=== PATIENT | male | born 1980 | race Two or more races ===

== ENCOUNTER 2024-02-27 15:53 | Inpatient (IN) | payer MEDICAID, OTHER ==
[~2024-02-27] VITALS: Ht 188 cm; Wt 100.0 kg
--- NOTE | 2024-02-27 16:01 | ED.PDOC ---
HPI Comments HPI: Poor Historian. 45 y.o male presents to the ED via EMS for a chief complaint of chest wall pain that started 4 days ago. Patient reports 10/10 constant chest pain that is non radiating and has no associating symptoms. Patient admits to heavy ETOH use, has been drinking hard Vodka and other sort of liquor for one month straight and states he wants help. Patient denies any SI, HI, auditory or visual hallucinations. Patient denies any substance or tobacco use. Vital signs: BP: 164/114 HR: 130 Temp: 98.3 F SPO2: 98% RA RR: 16 Patient denies any allergies Past medical history: HTN- medication non compliant x 6 months, PTSD, ETOH abuse , bipolar Past surgical history: Denies REVIEW OF SYSTEMS: CONSTITUTIONAL: Denies acute: fever, diaphoresis, chills, HEAD: Denies acute: headache, photophobia Eyes: Denies acute: Double vision, vision loss, eye pain, eye discharge. EARS: Denies acute: tinnitus, hearing loss, ear discharge, ear pain, THROAT: Denies acute: sore throat, swelling, difficulty swallowing , pain with swallowing, change in voice. NECK: Denies acute: neck pain, neck swelling, stiff neck. HEART: Denies acute : palpitations, LUNGS: Denies acute: SOB, wheezing, cough, hemoptysis ABDOMEN: Denies acute: abdominal pain, Nausea, Vomiting, diarrhea, melena , hematemesis, hematochezia SKIN: Denies acute: rash, redness, lesions, itchiness. EXTREMITIES: Denies acute: calf pain, numbness, tingling, weakness, denies pain in extremity. Denies acute: Low back pain. Neuro: Denies acute: focal neurological deficit, motor or sensory focal neurological deficit, tremors, seizure like activity, confusion, dizziness, change in mental status, loss of bowel or bladder function, cauda equina like symptoms. : Denies acute: dysuria, hematuria, flank pain, increase in urinary frequency. PSYCH: Denies acute: hallucination, suicidal ideation, homicidal ideation. PHYSICAL EXAM: General: Moderate acute distress, awake and alert. Head: normocephalic, atraumatic. Neck: supple, trachea is midline, no swelling. Throat: Normal phonation. Eyes:, no erythema, no purulent discharge, no proptosis, no icterus. Heart: regular tachycardia, no significant murmur appreciated. Lungs: no apparent respiratory distress, Able to speak in full sentences. No wheezing, no rhonchi, no crackles. No stridors Clear to auscultation bilaterally. Abdomen: non tender to palpation, non distended, soft, no guarding, no rebound, + bowel sounds. Neuro: Awake, Alert, oriented to name, self, situation, follows commands GCS=15. Speech is normal. Skin: no petechia, no purpura, no cyanosis, non-pale, not jaundice. Lower extremities: --no - Pitting edema no deformity, no focal swelling, no calf TTP. Makes eye contact. moves all four extremities. Face: no apparent facial droop. Ambulating in the ED independently. Time Seen by MD: 15:52 Reviewed Notes: Nurses Notes, Assistant General Manager Notes, Medications, Allergies Allergies: Coded Allergies: NO KNOWN ALLERGIES (Unverified , 02/27/24) Information Source: Patient, Emergency Med Personnel Mode of Arrival: EMS Timing: Days (4) Past Medical History PAST MEDICAL HISTORY: HTN Past Medical History (Other): ETOH abuse and PTSD Surgical History: Denies all surgeries Family History Family History: Reviewed,noncontributory to illness Social History Smoker: Non-Smoker Alcohol: Heavy Drugs: Denies Drug Use Was a procedure done? Was a procedure done?: No CP Differential Dx Differential Diagnosis: Angina, Anxiety / Panic Attack Differential Diagnosis: Medical NonCompliance Differential Diagnosis: Angina, Chest Wall Pain, Costochondritis, Other (Ddx include but not limitied to gastritis, musculoskeletal pain, radiculopathy, atypical chest pain, dissection, aneurysm, ACS, unstable angina, hiatal hernia, GERD, anxiety, costochondritis, PE, pneumothroax, neoplasm, cardiac ischemia, drug abuse, anemia.) X-Ray, Labs, Meds, VS Vital Signs Date Time Temp Pulse Resp B/P (MAP) Pulse Ox O2 Delivery O2 Flow Rate FiO2 02/27/24 20:00 104 02/27/24 20:00 104 11 131/94 (106) 93 02/27/24 18:00 135/99 02/27/24 17:00 114 02/27/24 16:58 108 02/27/24 16:58 129/93 02/27/24 16:50 120 30 129/93 (105) 95 02/27/24 16:50 120 30 95 Room Air* 0 21 02/27/24 16:00 98.3 130 16 164/114 (131) 98 02/27/24 15:53 124 Lab Test 02/27/24 19:20 02/27/24 17:41 02/27/24 17:00 02/27/24 16:34 Range/Units Lactic Acid Level 4.4 *H 4.3 *H 0.4-2.0 mmol/L Troponin I High Sensitivity 5 4 3 L </=54 ng/L Urine Color Yellow Yellow Urine Clarity Turbid H Clear Urine pH 6.5 5.0-9.0 Urine Specific [place] 1.014 1.001-1.035 Urine Protein 2+ H Negative Urine Ketones 1+ H Negative Urine Blood 2+ H Negative /uL Urine Nitrite Negative Negative Urine Bilirubin Negative Negative Urine Urobilinogen 2 H Negative mg/dL Urine Leukocyte Esterase 2+ Negative /uL Urine RBC 16 0 - 3 /hpf Urine WBC 429 0 - 3 /hpf Urine WBC Clumps Present None Seen /hpf Urine Squamous Epithelial Cells None seen <5 /hpf Urine Bacteria Few H None Seen /hpf Urine Mucus Few None Seen Urine Glucose Normal Normal mg/dL Urine Opiates Screen Neg NEGATIVE Urine Fentanyl Screen Neg NEGATIVE Urine Barbiturates Screen Neg NEGATIVE Urine Phencyclidine Screen Neg NEGATIVE Urine Amphetamines Screen Neg NEGATIVE Urine Benzodiazepines Screen Neg NEGATIVE Urine Cocaine Screen Neg NEGATIVE Urine Cannabinoids Screen Neg NEGATIVE White Blood Count 6.7 4.4-10.8 10^3/uL Red Blood Count 5.43 4.5-5.90 10^6/uL Hemoglobin 17.7 H 13.5-17.5 g/dL Hematocrit 50.4 41.0-53.0 % Mean Corpuscular Volume 92.8 80.0-100.0 fL Mean Corpuscular Hemoglobin 32.5 H 28.0-32.0 pg Mean Corpuscular Hemoglobin Concent 35.0 32.0-36.0 g/dL Red Cell Distribution Width 13.9 11.8-14.3 % Platelet Count 112 L 140-450 10^3/uL Mean Platelet Volume 7.7 6.9-10.8 fL Neutrophils (%) (Auto) 54.3 37.0-80.0 % Lymphocytes (%) (Auto) 40.6 10.0-50.0 % Monocytes (%) (Auto) 4.6 0.0-12.0 % Eosinophils (%) (Auto) 0.0 0.0-7.0 % Basophils (%) (Auto) 0.5 0.0-2.0 % Neutrophils # (Auto) 3.6 1.6-8.6 10 ^3/uL Lymphocytes # (Auto) 2.7 0.4-5.4 10 ^3/uL Monocytes # (Auto) 0.3 0-1.3 10 ^3/uL Eosinophils # (Auto) 0 0-0.8 10 ^3/uL Basophils # (Auto) 0 0-0.2 10 ^3/uL Nucleated Red Blood Cells 0.2 % Sodium Level 139 136-145 mmol/L Potassium Level 3.5 3.5-5.1 mmol/L Chloride Level 97 L 98-107 mmol/L Carbon Dioxide Level 28 20-31 mmol/L Anion Gap 14 5-15 Blood Urea Nitrogen 6 L 9-23 mg/dL Creatinine 0.72 0.700-1.30 mg/dL Glomerular Filtration Rate Calc 115 >90 mL/min BUN/Creatinine Ratio 8.3 L 10.0-20.0 Serum Glucose 112 H 74-106 mg/dL Calcium Level 9.3 8.7-10.4 mg/dL Magnesium Level 1.9 1.6-2.6 mg/dL Total Bilirubin 1.1 H 0.2-1.0 mg/dL Aspartate Amino Transferase (AST) 144 H 13-40 U/L Alanine Aminotransferase (ALT) 52 H 7-40 U/L Alkaline Phosphatase 86 46-116 U/L Total Protein 8.0 5.7-8.2 g/dL Albumin 4.6 3.2-4.8 g/dL Lipase 59 H 12-53 U/L Plasma/Serum Blood Alcohol 402.7 *H <10 mg/dL Current Medications Medications (Trade) Dose Ordered Sig/Jemal Route Start Time Stop Time Status Last Admin Lorazepam (Ativan Inj) 1 mg ONCE ONCE IV 02/27/24 16:00 02/27/24 16:01 DC 02/27/24 16:59 Chlordiazepoxide HCl (Librium Capsule) 25 mg ONCE ONCE PO 02/27/24 16:00 02/27/24 16:01 DC 02/27/24 16:58 Sodium Chloride 1,000 ml @ 1,000 mls/hr Q1H ONCE IV 02/27/24 16:00 02/27/24 16:59 DC 02/27/24 16:53 Nitroglycerin (Ntrostat Sublingual) 0.4 mg ONCE ONCE SL 02/27/24 16:15 02/27/24 16:16 DC 02/27/24 16:58 Sodium Chloride 1,000 ml @ 1,000 mls/hr Q1H ONCE IV 02/27/24 19:30 02/27/24 20:29 DC 02/27/24 19:30 [place] [id number] Ph: [phone] DIAGNOSTIC IMAGING Diagnostic Imaging Report : [id number] Signed PATIENT: SHANIQUA PISANO ACCT: [id number] UNIT: [id number] : 1980 LOC: ER ROOM / BED: / AGE / SEX: 43 / M ADM STATUS: REG ER SERVICE [id number] ORDERING PHYSICIAN: OLU ZAMORA DO PROCEDURE(s): CXRP - CHEST PORTABLE REASON: CHEST PAIN; ETOH ABUSE ORDER NUMBER(s): [id number], ACCESSION NUMBER(s): [id number] CHEST RADIOGRAPH Indication:CHEST PAIN; ETOH ABUSE Technique: Single frontal view of the chest was obtained Comparison: None FINDINGS: Lines and Tubes: None Lungs: No focal consolidation. Pleura: No effusion. No pneumothorax. Cardiomediastinal contours: Unremarkable Bones: No acute osseous abnormality. IMPRESSION: No acute cardiopulmonary disease. ATED BY: NOAH CROW DO DICTATED DATE/TIME: 02/27/241707 SIGNED BY: NOAH CROW DO SIGNED DATE/TIME: 02/27/241707 CC: Time of 1ST Reevaluation: 15:58 Reevaluation 1ST: Unchanged Time of 2ND Reevaluation: 20:40 Reevaluation 2ND: Improved Patient Education/Counseling: Diagnosis, Treatment Family Education/Counseling: No Family Present Comments Patient presented with the above HPI.---chest pain/alcohol abuse/withdrawal- --workup was initiated. patient was found with the above mentioned diagnosis. Patient was given: Fluid hydration, patient was found with UTI patient was given Rocephin. Protonix, Carafate, nitroglycerin sublingual, thiamine, social service consult was placed. I suspect that there might be an underlying gastritis causing his manifestation of chest discomfort from excessive alcohol and nausea and vomiting that he later voiced. Aspirin was held off at this time. Patient ED course and VS have been stabilized. Patient has been reassessed in the ED and remained in a stable condition. Pertinent incidental findings were discussed with the patient and/or family. Patient/family voices understanding and is agreeable with plan. Patient has been observed in the ED adequate length of time to insure improvement/stability. patient was admitted to the medicine team for further evaluation and treatment of their presentation. All the reports of any imaging studies that were ordered by myself were reviewed by myself. Departure 1 Departure Time of Disposition: 16:41 Impression: Primary Impression: Chest pain Additional Impressions: Alcohol abuse Dehydration UTI (urinary tract infection) Disposition: ADMITTED INPATIENT Admit to: Tele Condition: Guarded Discharged With: Self Critical Care Note Critical Care Time?: No Heart Score Heart Score: Heart Score Response (Comments) Value History Slightly Suspicious 0 EKG Normal 0 Age 45-64 1 Risk Factors 1 or 2 risk factors 1 Troponin Normal limit 0 Total 2 I personally scribed for OLU ZAMORA DO ([email or web address]) on 02/27/24 at 16:01. Kymberly ctronically submitted by Calista Dobson ([facility]). I personally scribed for OLU ZAMORA DO ([email or web address]) on 02/27/24 at 18:05. Electr onically submitted by Calista Dobson ([facility]). OLU ZAMORA DO Feb 27, 2024 16:01
[2024-02-27 16:50] VITALS: PULSE 120; RESP 30; O2SAT 95
[2024-02-27 16:50] LABS: Basophils # (auto) 0 10 ^3/uL (0-0.2); Basophils % (auto) 0.5 % (0.0-2.0); Eosinophils # (auto) 0 10 ^3/uL (0-0.8); Hematocrit 50.4 % (41.0-53.0); Hemoglobin 17.7 g/dL (13.5-17.5); Lymphocytes # (auto) 2.7 10 ^3/uL (0.4-5.4); Lymphocytes % (auto) 40.6 % (10.0-50.0); Mean Corpuscular Hemoglobin 32.5 pg (28.0-32.0); Mean Corpuscular Volume 92.8 fL (80.0-100.0); Monocytes # (auto) 0.3 10 ^3/uL (0-1.3); Monocytes % (auto) 4.6 % (0.0-12.0); Neutrophils # (auto) 3.6 10 ^3/uL (1.6-8.6); Neutrophils % (auto) 54.3 % (37.0-80.0); Nucleated Red Blood Cells % 0.2 %; Platelet Count (auto) 112 10^3/uL (140-450); Red Blood Cells 5.43 10^6/uL (4.5-5.90); Red Cell Distribution Width 13.9 % (11.8-14.3); White Blood Cell 6.7 10^3/uL (4.4-10.8)
[2024-02-27] MEDS: SODIUM CHLORIDE 0.9% 1,000 ML IV ONE ×2 (16:53→19:30)
[2024-02-27] MEDS: chlordiazePOXIDE HCL 25 MG CAP PO ONE (16:58)
[2024-02-27] MEDS: NITROGLYCERIN 0.4 MG SL TAB SL ONE ×2 (16:58→22:57)
[2024-02-27] MEDS: LORazepam 2MG/ML-1ML VIAL IV ONE (16:59)
[2024-02-27 17:06] LABS: Alanine Aminotransferase 52 U/L (7-40); Albumin 4.6 g/dL (3.2-4.8); Alkaline Phosphatase 86 U/L (46-116); Anion Gap 14 (5-15); Aspartate Aminotransferase 144 U/L (13-40); BUN/Creatinine Ratio 8.3 (10.0-20.0); Bilirubin, Total 1.1 mg/dL (0.2-1.0); Blood Urea Nitrogen 6 mg/dL (9-23); Calcium 9.3 mg/dL (8.7-10.4); Carbon Dioxide 28 mmol/L (20-31); Chloride 97 mmol/L (98-107); Glucose 112 mg/dL (74-106); Magnesium 1.9 mg/dL (1.6-2.6); Potassium 3.5 mmol/L (3.5-5.1); Sodium 139 mmol/L (136-145)
--- NOTE | 2024-02-27 17:10 | DVH ---
CHEST RADIOGRAPH Indication:CHEST PAIN; ETOH ABUSE Technique: Single frontal view of the chest was obtained Comparison: None FINDINGS: Lines and Tubes: None Lungs: No focal consolidation. Pleura: No effusion. No pneumothorax. Cardiomediastinal contours: Unremarkable Bones: No acute osseous abnormality. IMPRESSION: No acute cardiopulmonary disease.
[2024-02-27 17:23] LABS: Blood Alcohol 402.7 mg/dL (<10); Lactic Acid w/Reflex 4.3 mmol/L (0.4-2.0)
[2024-02-27 18:11] LABS: Lipase 59 U/L (12-53)
[2024-02-27 19:25] LABS: Amphetamine Screen, Urine Neg (NEGATIVE); Barbiturate Scree,Urine Neg (NEGATIVE); Benzodiazephine Screen, Urine Neg (NEGATIVE)
[2024-02-27 19:26] LABS: Cannabinoid Screen, Urine Neg (NEGATIVE); Cocaine Screen, Urine Neg (NEGATIVE); Opiate Scree,Urine Neg (NEGATIVE); Phencyclidine Screen, Urine Neg (NEGATIVE); Urine Bacteria FEW /hpf (None Seen); Urine Blood 2+ /uL (Negative); Urine Clarity Turbid (Clear); Urine Color Yellow (Yellow); Urine Mucus FEW (None Seen); Urine Protein, UAD 2+ (Negative); Urine Specific Gravity 1.014 (1.001-1.035); Urine Urobilinogen 2 mg/dL (Negative); Urine WBC 429 /hpf (0 - 3); Urine WBC Clumps PRESENT /hpf (None Seen); Urine pH 6.5 (5.0-9.0)
[2024-02-27] MEDS ORDERED: ACETAMINOPHEN 325 MG TAB PO PRN (20:45)
[2024-02-27] MEDS ORDERED: NITROGLYCERIN 0.4 MG SL TAB SL PRN (20:45)
[2024-02-27] MEDS ORDERED: MORPHINE SULFATE INJ 2 MG/ml SYRG IV PRN ×2 (20:45)
[2024-02-27 21:14] LABS: Basophils # (auto) 0 10 ^3/uL (0-0.2); Basophils % (auto) 0.3 % (0.0-2.0); Eosinophils # (auto) 0 10 ^3/uL (0-0.8); Hematocrit 46.2 % (41.0-53.0); Lymphocytes # (auto) 2.6 10 ^3/uL (0.4-5.4); Lymphocytes % (auto) 41.3 % (10.0-50.0); Mean Corpuscular Hemoglobin 32.3 pg (28.0-32.0); Mean Corpuscular Hgb Conc. 34.7 g/dL (32.0-36.0); Mean Corpuscular Volume 93.1 fL (80.0-100.0); Monocytes # (auto) 0.5 10 ^3/uL (0-1.3); Monocytes % (auto) 7.2 % (0.0-12.0); Neutrophils # (auto) 3.2 10 ^3/uL (1.6-8.6); Neutrophils % (auto) 51.2 % (37.0-80.0); Nucleated Red Blood Cells % 0.1 %; Platelet Count (auto) 101 10^3/uL (140-450); Red Blood Cells 4.97 10^6/uL (4.5-5.90); Red Cell Distribution Width 14.1 % (11.8-14.3); White Blood Cell 6.3 10^3/uL (4.4-10.8)
[2024-02-27 21:27] LABS: Alanine Aminotransferase 43 U/L (7-40); Albumin 4.1 g/dL (3.2-4.8); Alkaline Phosphatase 73 U/L (46-116); Anion Gap 12 (5-15); Aspartate Aminotransferase 113 U/L (13-40); Bilirubin, Total 1.1 mg/dL (0.2-1.0); Calcium 8.7 mg/dL (8.7-10.4); Carbon Dioxide 27 mmol/L (20-31); Chloride 99 mmol/L (98-107); Glucose 98 mg/dL (74-106); Sodium 138 mmol/L (136-145); Total Protein 7.4 g/dL (5.7-8.2)
[2024-02-27 21:31] LABS: Lactic Acid w/Reflex 4.3 mmol/L (0.4-2.0)
[2024-02-27 21:32] LABS: BUN/Creatinine Ratio 7.2 (10.0-20.0); Blood Urea Nitrogen < 5 mg/dL (9-23)
[2024-02-27] MEDS: SODIUM CHLOR 0.9% PF (SALINE LOCK) 10ML VIAL/SYR IV SCH (22:00)
[2024-02-27] MEDS: ONDANSETRON HCL 4 MG/2 ML VIAL IV PRN (22:09)
[2024-02-27] MEDS: THIAMINE HCL 100 MG TAB PO ONE (22:54)
[2024-02-27] MEDS: cefTRIAXone 1GM/50ML D5W 50 ML IV ONE (22:54)
[2024-02-27] MEDS: SUCRALFATE 1 GM TAB PO ONE (22:55)
[2024-02-27] MEDS: ENOXAPARIN SOD 40 MG/0.4 ML SYRINGE SC SCH (22:56)
[2024-02-27] MEDS: PANTOPRAZOLE 40 MG/10 ML VIAL INJ IV ONE ×2 (22:58→23:38)
--- NOTE | 2024-02-27 23:30 | DVHHPRES ---
History of Present Illness Resident Creating Document: AMARILIS DRAKE RESIDENT History of Present Illness SHANIQUA PISANO is a 45 years old male with a PMH of HTN, PTSD, alcohol abuse, presented to the ED in alcohol intoxicated state with the chief complaints of chest pain. Patient reported chest pain started 9:00 a.m. today in left sternum which is pressure-like, constant 10/10, nonradiating, nothing make it better or worse, associated with nausea, vomiting which prompted him to visit ED. patient does report he has been having alcohol withdrawal every day and has been taking alcohol heavily for that, patient reports has been went to rehabilitation in past, considering now to go to rehab again. On my assessment patient denies diaphoresis, abdominal pain, headache, palpitations and other associated symptoms Past Medical History HTN, PTSD, alcohol abuse, depression Past Surgical History: None Family History: None Past Social History Lives with a brother. Heavy alcohol abuse but denies smoking or other drug abuse Review of Systems Constitutional: Yes: Sweats Eyes: No: Pain, Vision change, Conjunctivae inflammation, Eyelid inflammation, Other, Redness ENT: No: Ear pain, Ear discharge, Nose pain, Nose discharge, Nose congestion, Mouth pain, Mouth swelling, Throat pain, Throat swelling, Other Respiratory: No: Cough, Dry, Shortness of breath, SOB with excertion, Wheezing, Hemoptysis, Pleuritic Pain, Sputum, Wheezing, Other Cardiovascular: Chest Pain Gastrointestinal: Nausea, Vomiting Genitourinary: No Dysuria, No Frequency, No Incontinence, No Hematuria, No Retention, No Other Musculoskeletal: No: other, neck pain, shoulder pain, arm pain, back pain, hand pain, leg pain, foot pain Skin: No: Rash, Lesions, Jaundice, Bruising, Other Neurological: No: Weakness, Numbness, Incoordination, Change in speech, Confusion, Seizures, Other Allergies: Coded Allergies: NO KNOWN ALLERGIES (Unverified , 02/27/24) Medications Current Medications Medications Dose Ordered Sig/Jemal Route Start Time Stop Time Status Last Admin Dose Admin Sodium Chloride 10 ml Q8HR IV 02/27/24 22:00 02/27/24 22:00 10 ML Ondansetron HCl 4 mg Q4HP PRN IV 02/27/24 20:45 02/27/24 22:09 4 MG Acetaminophen 650 mg Q6HP PRN PO 02/27/24 20:45 Morphine Sulfate 2 mg Q4HPRN PRN IV 02/27/24 20:45 Enoxaparin Sodium 40 mg DAILY SC 02/27/24 20:45 Nitroglycerin 0.4 mg Q5MINP PRN SL 02/27/24 20:45 Morphine Sulfate 2 mg Q30M PRN IV 02/27/24 20:45 Folic Acid 1 mg/ Multivitamins 10 ml/Magnesium Sulfate 8 meq/ Thiamine HCl 100 mg/Dextrose 1,013.2 ml @ 125.001 mls/hr DAILY@1800 INJ 02/28/24 18:00 Ceftriaxone Sodium 50 ml @ 100 mls/hr DAILY@2200 IV 02/28/24 22:00 Exam Vital Signs Vital Signs Date Time Temp Pulse Resp B/P (MAP) Pulse Ox O2 Delivery O2 Flow Rate FiO2 02/27/24 22:57 135/97 02/27/24 20:00 104 02/27/24 20:00 11 93 02/27/24 16:50 Room Air* 0 21 02/27/24 16:00 98.3 Exam Pt is lying on bed General Appearance: Alert, Oriented X3, Cooperative, Not in acute distress HEENT: Atraumatic, Mucous membranes dry Respiratory: Clear to auscultation, Normal air movement, No added sounds Cardiovascular: Mild chest wall tenderness. Regular rate, Normal S1, Normal S2, No murmurs Abdominal: Active bowel sounds, Soft, no distention, no tenderness Extremities: No edema, Normal pulses, No tenderness/swelling Skin: No Significant rash Neuro: Normal speech, sensorimotor deficits none Psych/Mental Status: Mental status NL, Mood NL Nurse was there as ivoryne during examination Labs/Xrays Labs Test 02/27/24 23:20 02/27/24 21:00 02/27/24 19:20 02/27/24 17:00 Range/Units White Blood Count 6.3 4.4-10.8 10^3/uL Red Blood Count 4.97 4.5-5.90 10^6/uL Hemoglobin 16.0 13.5-17.5 g/dL Hematocrit 46.2 41.0-53.0 % Mean Corpuscular Volume 93.1 80.0-100.0 fL Mean Corpuscular Hemoglobin 32.3 H 28.0-32.0 pg Mean Corpuscular Hemoglobin Concent 34.7 32.0-36.0 g/dL Red Cell Distribution Width 14.1 11.8-14.3 % Platelet Count 101 L 140-450 10^3/uL Mean Platelet Volume 7.6 6.9-10.8 fL Neutrophils (%) (Auto) 51.2 37.0-80.0 % Lymphocytes (%) (Auto) 41.3 10.0-50.0 % Monocytes (%) (Auto) 7.2 0.0-12.0 % Eosinophils (%) (Auto) 0.0 0.0-7.0 % Basophils (%) (Auto) 0.3 0.0-2.0 % Neutrophils # (Auto) 3.2 1.6-8.6 10 ^3/uL Lymphocytes # (Auto) 2.6 0.4-5.4 10 ^3/uL Monocytes # (Auto) 0.5 0-1.3 10 ^3/uL Eosinophils # (Auto) 0 0-0.8 10 ^3/uL Basophils # (Auto) 0 0-0.2 10 ^3/uL Nucleated Red Blood Cells 0.1 % Sodium Level 138 136-145 mmol/L Potassium Level 3.0 L 3.5-5.1 mmol/L Chloride Level 99 98-107 mmol/L Carbon Dioxide Level 27 20-31 mmol/L Anion Gap 12 5-15 Blood Urea Nitrogen < 5 L 9-23 mg/dL Creatinine 0.69 L 0.700-1.30 mg/dL Glomerular Filtration Rate Calc 116 >90 mL/min BUN/Creatinine Ratio 7.2 L 10.0-20.0 Serum Glucose 98 74-106 mg/dL Calcium Level 8.7 8.7-10.4 mg/dL Total Bilirubin 1.1 H 0.2-1.0 mg/dL Aspartate Amino Transferase (AST) 113 H 13-40 U/L Alanine Aminotransferase (ALT) 43 H 7-40 U/L Alkaline Phosphatase 73 46-116 U/L B-Type Natriuretic Peptide 6.78 0-100 pg/mL Total Protein 7.4 5.7-8.2 g/dL Albumin 4.1 3.2-4.8 g/dL Plasma/Serum Blood Alcohol 275.6 H <10 mg/dL Troponin I High Sensitivity 5 </=54 ng/L Urine Color Yellow Yellow Urine Clarity Turbid H Clear Urine pH 6.5 5.0-9.0 Urine Specific [place] 1.014 1.001-1.035 Urine Protein 2+ H Negative Urine Ketones 1+ H Negative Urine Blood 2+ H Negative /uL Urine Nitrite Negative Negative Urine Bilirubin Negative Negative Urine Urobilinogen 2 H Negative mg/dL Urine Leukocyte Esterase 2+ Negative /uL Urine RBC 16 0 - 3 /hpf Urine WBC 429 0 - 3 /hpf Urine WBC Clumps Present None Seen /hpf Urine Squamous Epithelial Cells None seen <5 /hpf Urine Bacteria Few H None Seen /hpf Urine Mucus Few None Seen Urine Glucose Normal Normal mg/dL Urine Opiates Screen Neg NEGATIVE Urine Fentanyl Screen Neg NEGATIVE Urine Barbiturates Screen Neg NEGATIVE Urine Phencyclidine Screen Neg NEGATIVE Urine Amphetamines Screen Neg NEGATIVE Urine Benzodiazepines Screen Neg NEGATIVE Urine Cocaine Screen Neg NEGATIVE Urine Cannabinoids Screen Neg NEGATIVE Test 02/27/24 16:34 Range/Units Lipase 59 H 12-53 U/L Assessment/Plan Assessment/Plan # chest pain rule out ACS # ? Costochondritis -reviewed EKG -trops x3 were negative -ordered chest pain protocol # Acute complicated UTI # ruled out sepsis -evident on urinalysis -ordered ceftriaxone -ordered urine and blood culture -elevated lactate level # dehydration -currently on IVF # acute alcohol intoxication # possible alcohol withdrawal -serum alcohol level is very high -ordered UDS and banana bag -monitor for withdrawal symptoms, given 1 dose of Ativan -counseled regarding cessation for more than 17 minutes -consider alcohol withdrawal protocol if needed based on CIWA score -currently CIWA score is 7 # Hypokalemia - Repleting - Monitor lab # mild transaminitis likely due to alcohol abuse -monitor lab Lovenox for now protonix Cardiac diet Goals of care discussed with the patient for more than 27 minutes: Full code status Case management discussed with Dr. Mclean, patient's nurse Plan discussed with: Patient My Orders Orders - AMARILIS DRAKE RESIDENT Procedure Category Date Status Time Admit ADMIT 02/27/24 Transmitted 20:38 Allergies KRIA 02/27/24 In Process 20:38 Code Status CODE 02/27/24 Transmitted 20:38 Sodium Chloride Lock PHA 02/27/24 In Process (Saline Lock Ns) 22:00 Ondansetron Hcl PHA 02/27/24 In Process (Zofran) 20:45 Complete Blood Count LAB 02/28/24 Verified 04:00 Comprehensive LAB 02/28/24 Verified Metabolic Panel 04:00 Cardiac DIET 02/28/24 Transmitted Diet-2gna,Lofat,Lochol Breakfast Acetaminophen Tablet PHA 02/27/24 In Process (Tylenol Tablet) 20:45 Morphine Sulfate PHA 02/27/24 In Process Injection 20:45 Enoxaparin Sodium PHA 02/27/24 In Process (Lovenox) 20:45 Nitroglycerin PHA 02/27/24 In Process Sublingual (Ntrostat 20:45 Morphine Sulfate PHA 02/27/24 In Process Injection 20:45 Oxygen By Nasal RT 02/27/24 Transmitted Cannula 20:38 Stat Ekg For Chest KIRA 02/27/24 In Process Pain 20:38 Notify Md Of Changes KIRA 02/27/24 In Process From Base 20:38 Supervisor Powdered Metal For KIRA 02/27/24 In Process 24 Hours 20:38 Emergency Dysrhythmia KIRA 02/27/24 In Process Protocol 20:38 Rhythm Strips Once KIRA 02/27/24 In Process Every Shift 20:38 Lactic Acid W/ Reflex LAB 02/27/24 In Process Order 23:04 Hemoglobin A1c LAB 02/27/24 In Process 23:04 PTPTT LAB 02/28/24 Verified 04:00 Vitamin D, 25-Hydroxy LAB 02/27/24 Logged 23:04 Vitamin B12 LAB 02/27/24 Logged 23:04 Thyroid Stimulating LAB 02/27/24 In Process Hormone 23:04 Magnesium LAB 02/27/24 In Process 23:04 Folate (Folic Acid) LAB 02/27/24 Logged 23:04 Folic Acid... PHA 02/28/24 In Process 18:00 Blood Culture AMAYA 02/27/24 In Process 23:07 Urine Bacterial AMAYA 02/27/24 In Process Culture 23:07 Ceftriaxone 1gm/50ml PHA 02/28/24 In Process D5w (Rocephin) 22:00 Pantoprazole PHA 02/27/24 Verified (Protonix) 23:30 Pantoprazole PHA 02/28/24 Verified (Protonix) 10:00 AMARILIS DRAKE RESIDENT Feb 27, 2024 23:30
[2024-02-27 23:40] VITALS: BP 120/86; PULSE 113; RESP 20; TEMP 98.9; O2SAT 96
[2024-02-27] MEDS: POTASSIUM EFFERVESENT TAB 25 MEQ PO ONE (23:48)
[2024-02-28] VITALS (10 sets, daily range): BP systolic 120–130; BP diastolic 78–92; PULSE 89–124; RESP 16–20; TEMP 97.9–100; O2SAT 93–98
[2024-02-28 00:02] LABS: Lactic Acid w/Reflex 4.3 mmol/L (0.4-2.0)
[2024-02-28 00:39] LABS: Folate (Folic Acid) 11.63 ng/mL (>5.38)
[2024-02-28] MEDS: LORazepam 2MG/ML-1ML VIAL IV SCH (01:15)
[2024-02-28] MEDS: chlordiazePOXIDE HCL 25 MG CAP PO SCH (03:31)
[2024-02-28 05:04] LABS: Basophils # (auto) 0 10 ^3/uL (0-0.2); Basophils % (auto) 0.3 % (0.0-2.0); Eosinophils # (auto) 0 10 ^3/uL (0-0.8); Hematocrit 39.8 % (41.0-53.0); Hemoglobin 13.7 g/dL (13.5-17.5); Lymphocytes # (auto) 1.8 10 ^3/uL (0.4-5.4); Lymphocytes % (auto) 32.6 % (10.0-50.0); Mean Corpuscular Hemoglobin 31.7 pg (28.0-32.0); Mean Corpuscular Hgb Conc. 34.4 g/dL (32.0-36.0); Mean Corpuscular Volume 92.1 fL (80.0-100.0); Monocytes # (auto) 0.3 10 ^3/uL (0-1.3); Neutrophils # (auto) 3.5 10 ^3/uL (1.6-8.6); Neutrophils % (auto) 62.1 % (37.0-80.0); Nucleated Red Blood Cells % 0.1 %; Platelet Count (auto) 83 10^3/uL (140-450); Red Blood Cells 4.32 10^6/uL (4.5-5.90); Red Cell Distribution Width 14.1 % (11.8-14.3); White Blood Cell 5.6 10^3/uL (4.4-10.8)
[2024-02-28 05:21] LABS: INR 1.06 (0.9-1.15); Partial Thromboplastin Time 23.7 SEC (24.5-34.5); Prothrombin Time 11.2 sec (9.3-11.8)
[2024-02-28 05:26] LABS: Alanine Aminotransferase 35 U/L (7-40); Albumin 3.6 g/dL (3.2-4.8); Alkaline Phosphatase 61 U/L (46-116); Anion Gap 13 (5-15); Aspartate Aminotransferase 88 U/L (13-40); Calcium 8.3 mg/dL (8.7-10.4); Carbon Dioxide 26 mmol/L (20-31); Chloride 98 mmol/L (98-107); Glucose 76 mg/dL (74-106); Potassium 3.2 mmol/L (3.5-5.1); Sodium 137 mmol/L (136-145)
[2024-02-28 05:27] LABS: Bilirubin, Total 1.4 mg/dL (0.2-1.0); Total Protein 6.3 g/dL (5.7-8.2)
[2024-02-28 05:28] LABS: BUN/Creatinine Ratio 8.1 (10.0-20.0); Blood Urea Nitrogen < 5 mg/dL (9-23)
[2024-02-28] MEDS: POTASSIUM EFFERVESENT TAB 25 MEQ PO ONE (06:53)
[2024-02-28] MEDS: LORazepam 2MG/ML-1ML VIAL IV PRN (07:00)
--- NOTE | 2024-02-28 09:51 | ECG ---
[facility] Test Date: 2024-02-27 Test Time: 15:53:00 Pat Name: SHANIQUA PISANO Department: ED Room: [facility]5T B Gender: M [employer]: MERLY : 1980 Requested By: OLU ZAMORA Order Number: [id number] Reading MD: Measurements Intervals [place] Rate: 124 P: 10 [place]: 121 QRS: -68 QRSD: 87 T: 93 QT: 423 QTc: 608 Interpretive Statements Sinus tachycardia Abnormal R-wave progression, late transition Inferior infarct, old Prolonged QT interval Please click the below link to view image of tracing.
[2024-02-28] MEDS: THIAMINE HCL 100 MG TAB PO SCH (10:21)
[2024-02-28] MEDS: PANTOPRAZOLE 40 MG/10 ML VIAL INJ IV SCH (10:21)
[2024-02-28] MEDS: MULTIPLE VITAMINS W/ MINERALS TAB PO SCH (10:22)
[2024-02-28] MEDS: FOLIC ACID 1 MG TAB PO SCH (10:23)
[2024-02-28] MEDS: FOLIC ACID 1 MG, MULTIPLE VITAMIN 10 ML, MAGNESIUM SULF SDV 50% 8 MEQ, THIAMINE INJ 100... INJ SCH (17:33)
--- NOTE | 2024-02-28 18:36 | DVHPNRES ---
Progress Note Date Seen: Feb 28, 2024 Resident Creating Document: ASUNCION EDMONDSON RESIDENT Medical Necessity Reason Pt with a Central, PICC or Fol: No Subjective Review of Systems Patient is a 43-year-old male with past medical history of hypertension, PTSD, alcohol abuse, who came in due to alcohol withdrawal. According to the patient he has been drinking nonstop for 1 month and has not eaten for the past 1 week. Patient notes that he understands he is undergoing a withdrawal and came to the hospital to seek help. Patient previously was also treated for a withdrawal episode at [facility] in October of 2023. Patient also notes he had 2 episodes of vomiting this a.m. on 02/28/2024. Patient currently denies any active ongoing chest pain, serial troponins are 3, 4, 5. EKG shows prolonged QTC, old infarct, sinus rhythm. Past surgical history: Denies Home medications: Denies Past Hospitalization: In July and October 2023 for similar withdrawal symptoms Social & Personal history: Patient lives with his brother at this time, currently unemployed. 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 Denies using tobacco or drugs. Quit smoking 20 y ears ago, prior to that was smoking half a pack per day for 8 years. Drinks daily about 1 6 pack of beer or 1.7 L bottle of alcohol. Allergies: Denies Patient seen and examined at bedside. Patient is alert and oriented to time, place person and responding to all questions. General: Reports feeling fatigued, fever. Reports weight loss of 15-20 lb in the past 6 months Eyes: No Pain, No Vision change, No Conjunctivae inflammation, No Eyelid inflammation, No Other, No Redness ENT: No Ear pain, No Ear discharge, No Nose pain, No Nose discharge, No Nose congestion, No Mouth pain, No Mouth swelling, No Throat pain, No Throat swelling, No Other Cardiovascular: No Chest Pain, No Palpitations, No Orthopnea, No Paroxysmal No Dyspnea, No Edema, No Lt Headedness, No Other Respiratory: No Cough, No Dry, No Shortness of breath, SOB with exertion, No Wheezing, No Hemoptysis, No Pleuritic Pain, No Sputum, No Other Gastrointestinal: No Nausea, Vomiting, No Abdominal Pain, Diarrhea, No Constipation, No Melena, No Hematochezia, No Other Genitourinary: Dysuria, No Frequency, No Incontinence, No Hematuria, No Retention, No Other Musculoskeletal: No other, No neck pain, No shoulder pain, No arm pain, No back pain, No hand pain, No leg pain, No foot pain Skin: No Rash, No Lesions, No Jaundice, No Bruising, No Other Objective vital signs Vital Sign Date Time Temp Pulse Resp B/P (MAP) Pulse Ox O2 Delivery O2 Flow Rate FiO2 02/28/24 16:09 98.6 100 20 129/81 (97) 93 98.6 02/28/24 08:00 Room Air* 0 21 Total Intake and Output 02/27/24 02/27/24 02/28/24 15:00 23:00 07:00 Intake Total 1000 ml 0 ml Output Total 0 ml Balance 1000 ml 0 ml medications Current Medications Medications Dose Ordered Sig/Jemal Route Start Time Stop Time Status Last Admin Dose Admin Sodium Chloride 10 ml Q8HR IV 02/27/24 22:00 02/28/24 14:02 10 ML Acetaminophen 650 mg Q6HP PRN PO 02/27/24 20:45 Morphine Sulfate 2 mg Q4HPRN PRN IV 02/27/24 20:45 Enoxaparin Sodium 40 mg DAILY SC 02/27/24 20:45 Nitroglycerin 0.4 mg Q5MINP PRN SL 02/27/24 20:45 Morphine Sulfate 2 mg Q30M PRN IV 02/27/24 20:45 Folic Acid 1 mg/ Multivitamins 10 ml/Magnesium Sulfate 8 meq/ Thiamine HCl 100 mg/Dextrose 1,013.2 ml @ 125.001 mls/hr DAILY@1800 INJ 02/28/24 18:00 02/28/24 17:33 125.001 MLS/HR Ceftriaxone Sodium 50 ml @ 100 mls/hr DAILY@2200 IV 02/28/24 22:00 Pantoprazole Sodium 40 mg DAILY IV 02/28/24 10:00 02/28/24 10:21 40 MG Chlordiazepoxide HCl 50 mg Q12HR PO 02/29/24 10:00 02/29/24 22:01 Chlordiazepoxide HCl 25 mg Q12HR PO 03/01/24 10:00 03/01/24 22:01 Chlordiazepoxide HCl 25 mg QAM PO 03/02/24 07:00 03/02/24 07:01 Multivitamins/ Minerals 1 tab DAILY PO 02/28/24 10:00 02/28/24 10:22 1 TAB Folic Acid 1 mg DAILY PO 02/28/24 10:00 02/28/24 10:23 1 MG Lorazepam 2 mg Q4HPRN PRN IV 02/28/24 04:15 02/28/24 07:00 2 MG Thiamine HCl 100 mg DAILY IV 02/29/24 10:00 Examination General Appearance: Cooperative. Well developed. Well nourished. NAD Head Exam: Normal inspection Neck Exam: Normal inspection. Non-tender. Normal alignment Pulmonary/Respiratory: Chest non-tender. Clear bilateral breath sounds, no crackles, no wheezing. Cardiovascular/Chest: Regular rate and rhythm. No murmurs. No JVD. Peripheral Pulses: 2+ Radial (R). 2+ Radial (L). 2+ Pedal (R). 2+ Pedal (L) Abdominal Exam: Normal bowel sounds. Soft. normal abdomen, no visible veins, Nontender. No hepatospenomegaly. No masses Upper extremity: Tremor noted upon extension of the arm Ankle Exam: Negative ankle edema Lower extremities: Negative lower extremity edema Neuro/Mental Status: A&O x4. Coherent. Thoughts/Psych: Normal thought pattern. Appropriate mood and affect. Good judgement and insight Skin Exam: Normal inspection. Normal color. Warm. Dry laboratory and microbiology Laboratory Tests 02/28/24 04:42 Test 02/28/24 04:42 Range/Units Serum Glucose 76 74-106 mg/dL Labs and/or images reviewed: Labs reviewed by me, Image(s) reviewed by me Problem List/Assessment/Plan Problem List/Assessment/Plan Alcohol withdrawal, CIWA score 11 Prolonged QTc Chest pain, ruled out ACS. Likely costochondritis - banana bag with D5W - folic acid 1 mg p.o. daily - Librium per protocol - multivitamin with mineral tablet - IV thiamine 100 mg daily Acute complicated UTI - IV ceftriaxone Alcohol use disorder - counseled patient extensively - social service worker consulted Hypokalemia - repleted PUD prophylaxis: protonix 40mg DVT prophylaxis: Levonox 40mg Goals of care: Full code, discussed for >16 minutes on 10/29/23 Plan discussed with patient Plan discussed with Dr. Cox Plan discussed with: Patient, Other (RN) My Orders My Orders Orders - EDMONDSON,EMAN RESIDENT Procedure Category Date Status Time Cardiac DIET 02/28/24 Transmitted Diet-2gna,Lofat,Lochol Lunch Basic Metabolic Panel LAB 02/28/24 Logged 19:00 Phosphorus LAB 02/28/24 Logged 19:00 Magnesium LAB 02/28/24 Logged 19:00 Thiamine Inj PHA 02/29/24 In Process 10:00 Date of Service: Feb 28, 2024 Billing Provider: TERESA COX MD Common Visit Codes: [id number] INP/OBS CARE(HIGH) Coding Comment Comment I saw and evaluated the patient. I reviewed the residents note and agree with findings and plan as documented in the residents note. Avoid QT prolonging medication including Zofran, patient informed and understands ASUNCION EDMONDSON RESIDENT Feb 28, 2024 18:36 TERESA COX MD Feb 28, 2024 20:42
[2024-02-28] MEDS ORDERED: MAALOX PLUS or MAALOX 30 ML PO PRN (18:45)
[2024-02-28 21:13] LABS: Chloride 93 mmol/L (98-107)
[2024-02-28 21:16] LABS: Anion Gap 7 (5-15); Carbon Dioxide 31 mmol/L (20-31)
[2024-02-28 21:17] LABS: Calcium 9.2 mg/dL (8.7-10.4)
[2024-02-28 21:21] LABS: Glucose 117 mg/dL (74-106)
[2024-02-28 21:22] LABS: Magnesium 1.3 mg/dL (1.6-2.6)
[2024-02-28 21:24] LABS: Phosphorus 0.5 mg/dL (2.4-5.1)
[2024-02-28] MEDS: cefTRIAXone 1GM/50ML D5W 50 ML IV SCH (21:26)
[2024-02-28 21:35] LABS: BUN/Creatinine Ratio 6.7 (10.0-20.0); Blood Urea Nitrogen 6 mg/dL (9-23); Sodium 131 mmol/L (136-145)
[2024-02-28] MEDS: MAGNESIUM SULFATE 1GM/100ML 100 ML IV SCH (23:37)
[2024-02-29 01:00] VITALS: BP 125/78; PULSE 115; RESP 18; TEMP 99; O2SAT 96
[2024-02-29] MEDS: POTASSIUM CHLORIDE 60 MEQ, LIDOCAINE 1% (LOCAL ANESTH.) 6 ML in SODIUM CHL 0.9% 500 ML IV ONE (01:56)
[2024-02-29] MEDS: SODIUM PHOSPHATES 40 MEQ in D5W 5% 250 ML IV ONE (01:57)
[2024-02-29 05:00] VITALS: BP 126/84; PULSE 105; RESP 16; TEMP 98.8; O2SAT 96
[2024-02-29] MEDS: PANTOPRAZOLE 40 MG TAB PO SCH (06:13)
[2024-02-29 06:21] LABS: Basophils # (auto) 0 10 ^3/uL (0-0.2); Basophils % (auto) 0.3 % (0.0-2.0); Eosinophils # (auto) 0 10 ^3/uL (0-0.8); Hematocrit 39.7 % (41.0-53.0); Hemoglobin 13.6 g/dL (13.5-17.5); Lymphocytes # (auto) 1.4 10 ^3/uL (0.4-5.4); Lymphocytes % (auto) 39.4 % (10.0-50.0); Mean Corpuscular Hemoglobin 31.7 pg (28.0-32.0); Mean Corpuscular Hgb Conc. 34.3 g/dL (32.0-36.0); Mean Corpuscular Volume 92.6 fL (80.0-100.0); Monocytes # (auto) 0.2 10 ^3/uL (0-1.3); Monocytes % (auto) 6.6 % (0.0-12.0); Neutrophils % (auto) 53.7 % (37.0-80.0); Nucleated Red Blood Cells % 0.2 %; Platelet Count (auto) 68 10^3/uL (140-450); Red Blood Cells 4.28 10^6/uL (4.5-5.90); Red Cell Distribution Width 14.1 % (11.8-14.3); White Blood Cell 3.7 10^3/uL (4.4-10.8)
[2024-02-29 06:30] LABS: Anion Gap 8 (5-15); Calcium 8.9 mg/dL (8.7-10.4); Carbon Dioxide 28 mmol/L (20-31); Chloride 98 mmol/L (98-107); Potassium 3.2 mmol/L (3.5-5.1); Sodium 134 mmol/L (136-145)
[2024-02-29 06:36] LABS: BUN/Creatinine Ratio 7.5 (10.0-20.0); Blood Urea Nitrogen 5 mg/dL (9-23); Glucose 104 mg/dL (74-106)
[2024-02-29 06:37] LABS: Magnesium 1.8 mg/dL (1.6-2.6)
[2024-02-29 06:38] LABS: Phosphorus 2.1 mg/dL (2.4-5.1)
[2024-02-29] MEDS: POTASSIUM EFFERVESENT TAB 25 MEQ PO ONE (07:10)
[2024-02-29 08:00] VITALS: PULSE 99
[2024-02-29 08:36] VITALS: BP 142/84; PULSE 97; RESP 18; TEMP 98.6; O2SAT 95
[2024-02-29] MEDS: POTASSIUM PHOSPHATE 22 MEQ in SODIUM CHL 0.9% 100 ML IV ONE (09:59)
[2024-02-29] MEDS: THIAMINE 100mg/ml INJ (200mg/2ml VIAL) IV SCH (10:00)
[2024-02-29] MEDS: MULTIPLE VITAMINS W/ MINERALS TAB PO SCH (10:00)
[2024-02-29] MEDS: chlordiazePOXIDE HCL 25 MG CAP PO SCH (10:00)
[2024-02-29] MEDS: MAGNESIUM OXIDE 400 MG TAB PO SCH (10:00)
[2024-02-29] MEDS ORDERED: THIA100T10 PO (11:32)
[2024-02-29] MEDS ORDERED: FOLITAB22 PO (11:32)
[2024-02-29] MEDS: FOLIC ACID 1 MG, MAGNESIUM SULF SDV 50% 8 MEQ, MULTIPLE VITAMIN 10 ML, THIAMINE INJ 100... INJ SCH (11:45)
--- NOTE | 2024-02-29 12:38 | DVHDSRES ---
Discharge Summary Date of Admission Resident Creating Document: ASUNCION EDMONDSON RESIDENT Feb 27, 2024 at 20:38 Date of Discharge: Feb 29, 2024 Labs/Diagnostic Data: Laboratory Results Test 02/29/24 05:20 02/28/24 22:50 02/28/24 04:42 02/27/24 23:20 White Blood Count 3.7 10^3/uL (4.4-10.8) Red Blood Count 4.28 10^6/uL (4.5-5.90) Hemoglobin 13.6 g/dL (13.5-17.5) Hematocrit 39.7 % (41.0-53.0) Mean Corpuscular Volume 92.6 fL (80.0-100.0) Mean Corpuscular Hemoglobin 31.7 pg (28.0-32.0) Mean Corpuscular Hemoglobin Concent 34.3 g/dL (32.0-36.0) Red Cell Distribution Width 14.1 % (11.8-14.3) Platelet Count 68 10^3/uL (140-450) Mean Platelet Volume 8.7 fL (6.9-10.8) Neutrophils (%) (Auto) 53.7 % (37.0-80.0) Lymphocytes (%) (Auto) 39.4 % (10.0-50.0) Monocytes (%) (Auto) 6.6 % (0.0-12.0) Eosinophils (%) (Auto) 0.0 % (0.0-7.0) Basophils (%) (Auto) 0.3 % (0.0-2.0) Neutrophils # (Auto) 2.0 10 ^3/uL (1.6-8.6) Lymphocytes # (Auto) 1.4 10 ^3/uL (0.4-5.4) Monocytes # (Auto) 0.2 10 ^3/uL (0-1.3) Eosinophils # (Auto) 0 10 ^3/uL (0-0.8) Basophils # (Auto) 0 10 ^3/uL (0-0.2) Nucleated Red Blood Cells 0.2 % Sodium Level 134 mmol/L (136-145) Potassium Level 3.2 mmol/L (3.5-5.1) Chloride Level 98 mmol/L (98-107) Carbon Dioxide Level 28 mmol/L (20-31) Anion Gap 8 (5-15) Blood Urea Nitrogen 5 mg/dL (9-23) Creatinine 0.67 mg/dL (0.700-1.30) Glomerular Filtration Rate Calc 117 mL/min (>90) BUN/Creatinine Ratio 7.5 (10.0-20.0) Serum Glucose 104 mg/dL (74-106) Calcium Level 8.9 mg/dL (8.7-10.4) Phosphorus Level 2.1 mg/dL (2.4-5.1) Magnesium Level 1.8 mg/dL (1.6-2.6) Lactic Acid Level 1.5 mmol/L (0.4-2.0) Prothrombin Time 11.2 sec (9.3-11.8) Prothrombin Time INR 1.06 (0.9-1.15) Activated Partial Thromboplast Time 23.7 SEC (24.5-34.5) Total Bilirubin 1.4 mg/dL (0.2-1.0) Aspartate Amino Transferase (AST) 88 U/L (13-40) Alanine Aminotransferase (ALT) 35 U/L (7-40) Alkaline Phosphatase 61 U/L (46-116) Total Protein 6.3 g/dL (5.7-8.2) Albumin 3.6 g/dL (3.2-4.8) Lipase 50 U/L (12-53) Thyroid Stimulating Hormone (TSH) 2.37 uIU/mL (0.55-4.78) Test 02/27/24 21:00 02/27/24 19:20 02/27/24 17:00 02/27/24 16:34 Hemoglobin A1c 5.4 % A1C (<5.7) B-Type Natriuretic Peptide 6.78 pg/mL (0-100) Plasma/Serum Blood Alcohol 275.6 mg/dL (<10) Troponin I High Sensitivity 5 ng/L (</=54) Urine Color Yellow (Yellow) Urine Clarity Turbid (Clear) Urine pH 6.5 (5.0-9.0) Urine Specific [place] 1.014 (1.001-1.035) Urine Protein 2+ (Negative) Urine Ketones 1+ (Negative) Urine Blood 2+ /uL (Negative) Urine Nitrite Negative (Negative) Urine Bilirubin Negative (Negative) Urine Urobilinogen 2 mg/dL (Negative) Urine Leukocyte Esterase 2+ /uL (Negative) Urine RBC 16 /hpf (0 - 3) Urine WBC 429 /hpf (0 - 3) Urine WBC Clumps Present /hpf (None Seen) Urine Squamous Epithelial Cells None seen /hpf (<5) Urine Bacteria Few /hpf (None Seen) Urine Mucus Few (None Seen) Urine Glucose Normal mg/dL (Normal) Urine Opiates Screen Neg (NEGATIVE) Urine Fentanyl Screen Neg (NEGATIVE) Urine Barbiturates Screen Neg (NEGATIVE) Urine Phencyclidine Screen Neg (NEGATIVE) Urine Amphetamines Screen Neg (NEGATIVE) Urine Benzodiazepines Screen Neg (NEGATIVE) Urine Cocaine Screen Neg (NEGATIVE) Urine Cannabinoids Screen Neg (NEGATIVE) Vitamin B12 Level 878 pg/mL (211-911) Vitamin D 25-Hydroxy 7.2 ng/mL (30.0-100) Folic Acid 11.63 ng/mL (>5.38) Other Laboratory Tests 02/29/24 05:20 Brief Hx & Hospital Course: Patient is a 43-year-old male with past medical history of hypertension, PTSD, alcohol abuse, who came in due to alcohol withdrawal. According to the patient he has been drinking nonstop for 1 month and has not eaten for the past 1 week. Patient notes that he understands he is undergoing a withdrawal and came to the hospital to seek help. Patient previously was also treated for a withdrawal episode at [facility] in October of 2023. Patient also notes he had 2 episodes of vomiting this a.m. on 02/28/2024. Patient currently denies any active ongoing chest pain, serial troponins are 3, 4, 5. EKG shows prolonged QTC, old infarct, sinus rhythm. Hospital course: Serum alcohol was noted to be 402.7 and then 275.6. Patient was started on IV banana bag with D5, folic acid 1 mg, Librium per protocol, multivitamin and IV thiamine 100 mg. For his UTI use treated with IV ceftriaxone. Patient was counseled in great detail about the harmful effects of alcohol on his liver and general health. Electrolytes were repleted. On the day of discharge, patient appeared well and had stable vital signs, no tremors, no anxiety, no agitation, no tactile disturbances and patient was alert and oriented x4. Patient was instructed to follow up with PCP, he was prescribed folic acid and thiamine and instructed to take them to replete any depleted stores. His hospital course was uncomplicated. General Appearance: Cooperative. Well developed. Well nourished. NAD Head Exam: Normal inspection Neck Exam: Normal inspection. Non-tender. Normal alignment Pulmonary/Respiratory: Chest non-tender. Clear bilateral breath sounds, no crackles, no wheezing. Cardiovascular/Chest: Regular rate and rhythm. No murmurs. No JVD. Peripheral Pulses: 2+ Radial (R). 2+ Radial (L). 2+ Pedal (R). 2+ Pedal (L) Abdominal Exam: Normal bowel sounds. Soft. normal abdomen, no visible veins, Nontender. No hepatospenomegaly. No masses Upper extremity: Tremor noted upon extension of the arm Ankle Exam: Negative ankle edema Lower extremities: Negative lower extremity edema Neuro/Mental Status: A&O x4. Coherent. Thoughts/Psych: Normal thought pattern. Appropriate mood and affect. Good judgement and insight Skin Exam: Normal inspection. Normal color. Warm. Dry Condition at Discharge: Good Final Diagnosis/Problems List Alcohol withdrawal, CIWA score 11 Prolonged QTc Chest pain, ruled out ACS. Likely costochondritis Acute complicated UTI Alcohol use disorder Hypokalemia Discharge Disposition: Home Discharge Instruct/Medications Diet: Regular Activity: No Restrictions, As Tolerated Follow Up/Referral: Please follow up with PCP in 1-2 weeks Medications: Thiamine 100 mg daily Folic acid 1 mg daily Discharge Statement: "Patient was advised to return to the ER or call 911 if any headaches, dizziness, shortness of breath, chest pain, abdominal pain, bleeding, fevers, or worsening of medical condition. Patient was counseled about treatment plan, medications, possible side effects, patientverbalized understanding. All questions were answered to the best of my ability. This discharge took greater then 30 minutes in planning, reviewing documentation, counseling the patient, and discussing with other team members." ASSESSMENT ASSESSMENT Assessment Alcohol withdrawal, CIWA score 11 Prolonged QTc Chest pain, ruled out ACS. Likely costochondritis Acute complicated UTI Alcohol use disorder Hypokalemia Date of Service: Feb 29, 2024 Billing Provider: TERESA COX MD Common Visit Codes: [id number] DISCH DAY >30min Coding Comment Comment I saw and evaluated the patient. I reviewed the residents note and agree with findings and plan as documented in the residents note. ASUNCION EDMONDSON RESIDENT Feb 29, 2024 12:38 TERESA COX MD Feb 29, 2024 22:54
[2024-02-29 13:05] VITALS: BP 135/97; PULSE 96; RESP 18; TEMP 98.6; O2SAT 97
[2024-02-29 14:37] VITALS: BP 135/97; TEMP 37
[2024-03-01] MEDS ORDERED: chlordiazePOXIDE HCL 25 MG CAP PO SCH (10:00)
[2024-03-02] MEDS ORDERED: chlordiazePOXIDE HCL 25 MG CAP PO SCH (07:00)
[2024-03-02 08:34] LABS: Hepatitis B Surface Antigen Negative (Negative)
[2024-03-02 08:55] LABS: Hepatitis C Antibody Negative (Negative)
--- NOTE | 2024-03-02 15:06 | ECG ---
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
== END 2024-02-29 15:05 | disposition home or self-care (01) | DRG 203 ==
LOC: EDBD 15:53 → ER 16:13 → EDBD 16:13 → TELE 20:38 → TELE-WESTW 23:36
PROVIDERS: ADMIT Student in an Organized Health Care Education/Training Program; ATTEND Student in an Organized Health Care Education/Training Program
DX: M94.0 Chondrocostal junction syndrome [Tietze] (principal); E87.20 Acidosis, unspecified; E86.0 Dehydration; E87.6 Hypokalemia; I10 Essential (primary) hypertension; N39.0 Urinary tract infection, site not specified; F10.129 Alcohol abuse with intoxication, unspecified; F10.139 Alcohol abuse with withdrawal, unspecified; Z79.899 Other long term (current) drug therapy; Y90.8 Blood alcohol level of 240 mg/100 ml or more
CPT/HCPCS: 36415; 71045; 80048; 80053; 80307; 80320; 81001; 82306; 82607; 82746; 83036; 83605; 83690; 83735; 83880; 84100; 84443; 84484; 85025; 85610; 85730; 86803; 87040; 87086; 87088; 87186; 87340; 93005; G0378; J2003; J2405; J2470; J7060

== ENCOUNTER 2024-05-08 08:58 | Emergency (ER) | payer MEDICAID ==
[~2024-05-08] VITALS: Ht 190.5 cm; Wt 109.9 kg
[~2024-05-08 08:58] MED LIST: FOLITAB22 PO; THIA100T10 PO
--- NOTE | 2024-05-08 09:49 | ED.PDOC ---
History of Present Illness HPI Comments 43 year old male presents to the ED with a chief complaint of alcohol withdraws onset today around 04:00. Patient states he had been drinking a bottle of Vodka daily, for the past 4 days and his last drink was today at 04:00. Patient is currently experiencing nausea, vomiting, and chest pain. PMHx HTN, depression and has not been complaint with medication for the past year. No other symptoms or modifying factors present at this time. Chief Complaint: Withdrawal Time Seen by MD: 09:36 Reviewed Notes: Medications, Allergies Allergies: Coded Allergies: NO KNOWN ALLERGIES (Unverified , 02/27/24) Home Meds Active Scripts Folic Hqmm-Qagixxbhcm-Dastjoka (Folbic) Tab, 1 TAB PO DAILY for 30 Days, #90 TAB 1 Refill Prov:ASUNCION [place] RESIDENT 02/29/24 Thiamine Hcl (VITAMIN B-1) 100 Mg Tb, 100 MG PO DAILY for 30 Days, #30 TAB Prov:ASUNCION [place]MON[place] RESIDENT 02/29/24 Information Source: Patient Mode of Arrival: Ambulatory Severity: Moderate Timing: Hours Duration: Since onset Prehospital treatment: None Past Medical History PAST MEDICAL HISTORY: Depression, HTN Surgical History: Denies all surgeries Family History Family History: Reviewed,noncontributory to illness Social History Smoker: Non-Smoker Alcohol: Heavy Drugs: Denies Drug Use Lives In: Home Constitutional: denies: chills, diaphoresis, fatigue, fever, malaise, sweats, weakness, others EENTM: denies: blurred vision, double vision, ear bleeding, ear discharge, ear drainage, ear pain, ear ringing, eye pain, eye redness, hearing loss, mouth pain, mouth swelling, nasal discharge, nose bleeding, nose congestion, nose pain, photophobia, tearing, throat pain, throat swelling, voice changes, others Respiratory: denies: cough, hemoptysis, orthopnea, SOB at rest, shortness of breath, SOB with excertion, stridor, wheezing, others Cardiovascular: reports: chest pain; denies: dizzy spells, diaphoresis, Dyspnea on exertion, edema, irregular heart beat, left arm pain, lightheadedness, palpitations, PND, syncope, others Gastrointestinal: denies: abdomen distended, abdominal pain, blood streaked bowels, constipated, diarrhea, dysphagia, difficulty swallowing, hematemesis, melena, nausea, poor appetite, poor fluid intake, rectal bleeding, rectal pain, vomiting, others Genitourinary: denies: burning, dysuria, flank pain, frequency, hematuria, incontinence, penile discharge, penile sore, pain, testicle pain, testicle swelling, urgency, others Neurological: denies: dizziness, fainting, headache, left sided numbness, left sided weakness, numbness, paresthesia, pre-existing deficit, right sided numbness, right sided weakness, seizure, speech problems, tingling, tremors, weakness, others Musculoskeletal: denies: back pain, gout, joint pain, joint swelling, muscle pain, muscle stiffness, neck pain, others Integumetry: denies: bruises, change in color, change in hair/nails, dryness, laceration, lesions, lumps, rash, wounds, others Allergic/Immunocompromised: denies: Difficulty Healing, Frequent Infections, Hives, Itching, others Hematologic/Lymphatic: denies: anemia, blood clots, easy bleeding, easy bruising, swollen glands, others Endocrine: denies: excessive hunger, excessive sweating, excessive thirst, excessive urination, flushing, intolerance to cold, intolerance to heat, unexplained weight gain, unexplained weight loss, others Psychiatric: denies: anxiety, bipolar disorder, depression, hopeless, panic disorder, schizophrenia, sleepless, suicidal, others All Other Systems: Reviewed and Negative Physical Exam General Appearance: Mild Distress, Obese HEENT: Normal ENT Inspection, Pharynx Normal, TMs Normal Neck: Full Range of Motion, Non-Tender, Normal, Normal Inspection Respiratory: Chest Non-Tender, Lungs Clear, No Accessory Muscle Use, No Respiratory Distress, Normal Breath Sounds Cardiovascular: No Edema, No JVD, No Murmur, No Gallop, Normal Peripheral Pulses, Regular Rate/Rhythm Breast Exam: Deferred Gastrointestinal: Epigastric, No Organomegaly, Non Tender, No Pulsatile Mass, Normal Bowel Sounds, Soft, Tenderness, Other (Protuberant abdomen) Genitalia: Deferred Pelvic: Deferred Rectal: Deferred Extremities: No calf tenderness, Normal capillary refill, Normal inspection, Normal range of motion, Non-tender, No pedal edema Neurologic: Alert, 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 Was a procedure done?: No EKG EKG : Pulse Rate (adult): 108 [place]: Normal Cardiac Rhythm: ST Differential Dx Considerations may include: Abdominal pain alcoholic gastritis alcohol abuse alcohol withdrawal syndrome hypertension pancreatitis X-Ray, Labs, Meds, VS Vital Signs Date Time Temp Pulse Resp B/P (MAP) Pulse Ox O2 Delivery O2 Flow Rate FiO2 05/08/24 11:43 98.6 92 16 125/90 (102) 97 98.6 05/08/24 10:12 108 05/08/24 09:18 98.9 100 17 123/93 (103) 96 98.9 05/08/24 09:18 100 17 96 Room Air 05/08/24 09:11 108 05/08/24 09:10 Room Air* 0 21 05/08/24 09:10 97.9 100 20 119/82 (94) 96 Lab Test 05/08/24 10:21 05/08/24 09:15 Range/Units White Blood Count 6.1 4.4-10.8 10^3/uL Red Blood Count 5.04 4.5-5.90 10^6/uL Hemoglobin 16.0 13.5-17.5 g/dL Hematocrit 46.9 41.0-53.0 % Mean Corpuscular Volume 93.0 80.0-100.0 fL Mean Corpuscular Hemoglobin 31.6 28.0-32.0 pg Mean Corpuscular Hemoglobin Concent 34.0 32.0-36.0 g/dL Red Cell Distribution Width 14.7 H 11.8-14.3 % Platelet Count 270 140-450 10^3/uL Mean Platelet Volume 7.0 6.9-10.8 fL Neutrophils (%) (Auto) 37.0-80.0 % Lymphocytes (%) (Auto) 10.0-50.0 % Monocytes (%) (Auto) 0.0-12.0 % Basophils (%) (Auto) 0.0-2.0 % Neutrophils # (Auto) 1.6-8.6 10 ^3/uL Lymphocytes # (Auto) 0.4-5.4 10 ^3/uL Monocytes # (Auto) 0-1.3 10 ^3/uL Differential Total Cells Counted 100.0 100 Neutrophils % (Manual) 38 37.0-80.0 Band Neutrophils % (Manual) 3 Lymphocytes % (Manual) 55 H 10.0-50.0 Monocytes % (Manual) 4 0-12 Eosinophils % (Manual) 0 0-7 Basophils % (Manual) 0 0.0-2.0 Metamyelocytes % (manual) 0 Myelocytes % (Manual) 0 Promyelocytes % (Manual) 0 Blast Cells % (Manual) 0 Reactive Lymphocytes 0 Platelet Estimate Adequate Sodium Level 141 136-145 mmol/L Potassium Level 3.4 L 3.5-5.1 mmol/L Chloride Level 107 98-107 mmol/L Carbon Dioxide Level 25 20-31 mmol/L Anion Gap 9 5-15 Blood Urea Nitrogen 11 9-23 mg/dL Creatinine 0.90 0.700-1.30 mg/dL Glomerular Filtration Rate Calc 107 >90 mL/min BUN/Creatinine Ratio 12.2 10.0-20.0 Serum Glucose 93 74-106 mg/dL Calcium Level 9.6 8.7-10.4 mg/dL Magnesium Level 2.1 1.6-2.6 mg/dL Total Bilirubin 0.4 0.2-1.0 mg/dL Aspartate Amino Transferase (AST) 40 13-40 U/L Alanine Aminotransferase (ALT) 60 H 7-40 U/L Alkaline Phosphatase 47 46-116 U/L Total Protein 7.6 5.7-8.2 g/dL Albumin 4.3 3.2-4.8 g/dL Lipase 32 12-53 U/L Urine Color Yellow Yellow Urine Clarity Clear Clear Urine pH 5.5 5.0-9.0 Urine Specific [place] 1.022 1.001-1.035 Urine Protein Negative Negative Urine Ketones Negative Negative Urine Blood Negative Negative /uL Urine Nitrite Negative Negative Urine Bilirubin Negative Negative Urine Urobilinogen Normal Negative mg/dL Urine Leukocyte Esterase 1+ Negative /uL Urine RBC 1 0 - 3 /hpf Urine WBC 28 0 - 3 /hpf Urine Squamous Epithelial Cells None seen <5 /hpf Urine Bacteria None seen None Seen /hpf Urine Mucus Few None Seen Urine Glucose Normal Normal mg/dL Urine Opiates Screen Neg NEGATIVE Urine Fentanyl Screen Neg NEGATIVE Urine Barbiturates Screen Neg NEGATIVE Urine Phencyclidine Screen Neg NEGATIVE Urine Amphetamines Screen Neg NEGATIVE Urine Benzodiazepines Screen Neg NEGATIVE Urine Cocaine Screen Neg NEGATIVE Urine Cannabinoids Screen Neg NEGATIVE Current Medications Medications (Trade) Dose Ordered Sig/Jemal Route Start Time Stop Time Status Last Admin Ondansetron HCl (Zofran) 4 mg ONCE ONCE IV 05/08/24 09:45 05/08/24 09:49 DC 05/08/24 10:18 Sodium Chloride 1,000 ml @ 1,000 mls/hr Q1H ONCE IVB 05/08/24 09:45 05/08/24 10:44 DC 05/08/24 09:53 Al Hydrox/Mg Hydrox/Simethicone (Maalox Plus) 30 ml ONCE ONCE PO 05/08/24 09:45 05/08/24 09:49 DC 05/08/24 10:11 Belladonna Alkaloids/ Phenobarbital ( Elixir) 5 ml ONCE ONCE PO 05/08/24 09:45 05/08/24 09:49 DC 05/08/24 10:12 Pantoprazole Sodium (Protonix Tablet) 40 mg ONCE ONCE PO 05/08/24 09:45 05/08/24 09:49 DC 05/08/24 10:12 Lorazepam (Ativan Inj) 1 mg ONCE ONCE IV 05/08/24 09:45 05/08/24 09:49 DC 05/08/24 10:18 [place] [id number] Ph: [phone] DIAGNOSTIC IMAGING Diagnostic Imaging Report : [id number] Signed PATIENT: SHANIQUA PISANO ACCT: [id number] UNIT: [id number] : 1980 LOC: ER ROOM / BED: / AGE / SEX: 43 / M ADM STATUS: REG ER SERVICE ORDERING PHYSICIAN: PHILLIP RIOS MD PROCEDURE(s): CXR2 - CHEST TWO VIEWS ROUTINE REASON: abd pain ORDER NUMBER(s): [id number], ACCESSION NUMBER(s): [id number] XY CHEST TWO VIEWS ROUTINE CLINICAL HISTORY: abd pain COMPARISON: None TECHNIQUE: Frontal and lateral view of the chest was obtained FINDINGS: Lines and Tubes: None Lungs: No focal consolidation. Pleura: No effusion. No pneumothorax. Cardiomediastinal contours: Unremarkable Bones: No acute osseous abnormality. IMPRESSION: No acute cardiopulmonary disease. ATED BY: CARTER WORTHY MD DICTATED DATE/TIME: 05/08/24 1021 SIGNED BY: CARTER WORTHY MD SIGNED DATE/TIME: 05/08/24 1021 CC: X-Ray, Labs, Meds, VS Comment Course in the emergency department eventful fall patient came in because of withdrawal and also has feeling of chest pains patient excessively drinking and one on binge vodka Patient has history of hypertension and depression Chest x-ray is normal EKG shows sinus tachycardia at 1:08 a.m. CBC normal CMP potassium 3.4 ALT at 60 Lipase 32 Urine negative UDS negative Patient left AMA Time of 1ST Reevaluation: 10:06 Reevaluation 1ST: Unchanged Time of 2ND Reevaluation: 13:40 Reevaluation 2ND: Improved Consultation: PCP, Other (Detoxification) Patient Education/Counseling: Diagnosis, Treatment, Prognosis, Need For Follow Up Family Education/Counseling: Diagnosis, Treatment, Prognosis, Need For Follow Up, No Family Present Additional Information The following tests were ordered, and results were reviewed by me: EKG, CBC, CMP, LIPASE, UA, MAGNESIUM, XY CHEST 2 VIEWS, DRUG SCREEN, MANUAL DIFFERENTIAL I reviewed and agreed with the following test results read by other providers: XR CHEST 2 VIEWS I discussed treatment and results with medical personnel and: patient Departure 1 Departure Time of Disposition: 13:41 Impression: Primary Impression: Alcohol abuse Additional Impressions: Dehydration Epigastric pain Disposition: LEFT AGAINST MEDICAL ADVICE Condition: Serious Discharged With: Self Critical Care Note Critical Care Time?: No Stability Stability form required: No Heart Score Heart Score: Heart Score Response (Comments) Value History Slightly Suspicious 0 EKG Normal 0 Age <45 0 Risk Factors 1 or 2 risk factors 1 Troponin N/A 0 Total 1 I personally scribed for PHILLIP RIOS MD ([email or web address]) on 05/08/24 at 09:49. Electronically submitted by Whit Fleming ([email or web address]). I personally scribed for PHILLIP RIOS MD ([email or web address]) on 05/08/24 at 12:32. Electronically submitted by Whit Fleming ([email or web address]). PHILLIP RIOS MD May 08, 2024 09:49
[2024-05-08] MEDS: SODIUM CHLORIDE 0.9% 1,000 ML IVB ONE (09:53)
[2024-05-08] MEDS: MAALOX PLUS or MAALOX 30 ML PO ONE (10:11)
[2024-05-08] MEDS: PANTOPRAZOLE 40 MG TAB PO ONE (10:12)
[2024-05-08] MEDS: DONNATAL 5ml ORAL Elix (BELLADONNA ALK-PHENOBARB) PO ONE (10:12)
[2024-05-08] MEDS: LORazepam 2MG/ML-1ML VIAL IV ONE (10:18)
[2024-05-08] MEDS: ONDANSETRON HCL 4 MG/2 ML VIAL IV ONE (10:18)
--- NOTE | 2024-05-08 10:24 | DVH ---
XY CHEST TWO VIEWS ROUTINE CLINICAL HISTORY: abd pain COMPARISON: None TECHNIQUE: Frontal and lateral view of the chest was obtained FINDINGS: Lines and Tubes: None Lungs: No focal consolidation. Pleura: No effusion. No pneumothorax. Cardiomediastinal contours: Unremarkable Bones: No acute osseous abnormality. IMPRESSION: No acute cardiopulmonary disease.
[2024-05-08 10:38] LABS: Hematocrit 46.9 % (41.0-53.0); Mean Corpuscular Hemoglobin 31.6 pg (28.0-32.0); Platelet Count (auto) 270 10^3/uL (140-450); Red Blood Cells 5.04 10^6/uL (4.5-5.90); Red Cell Distribution Width 14.7 % (11.8-14.3); White Blood Cell 6.1 10^3/uL (4.4-10.8)
[2024-05-08 10:40] LABS: Basophils % (manual) 0 (0.0-2.0); Blast Cells 0; Eosinophils % (manual) 0 (0-7); Metamyelocytes % 0; Myelocytes % 0; Promyelocytes % 0; Reactive Lymphocytes 0
[2024-05-08 10:46] LABS: Albumin 4.3 g/dL (3.2-4.8); Alkaline Phosphatase 47 U/L (46-116); Anion Gap 9 (5-15); Aspartate Aminotransferase 40 U/L (13-40); BUN/Creatinine Ratio 12.2 (10.0-20.0); Bilirubin, Total 0.4 mg/dL (0.2-1.0); Blood Urea Nitrogen 11 mg/dL (9-23); Calcium 9.6 mg/dL (8.7-10.4); Carbon Dioxide 25 mmol/L (20-31); Glucose 93 mg/dL (74-106); Lipase 32 U/L (12-53); Magnesium 2.1 mg/dL (1.6-2.6); Sodium 141 mmol/L (136-145); Total Protein 7.6 g/dL (5.7-8.2)
--- NOTE | 2024-05-08 10:48 | ECG ---
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
[2024-05-08 10:50] LABS: Alanine Aminotransferase 60 U/L (7-40); Chloride 107 mmol/L (98-107); Potassium 3.4 mmol/L (3.5-5.1)
[2024-05-08 11:09] LABS: Band Neutrophils % (manual) 3; Lymphocytes % (manual) 55 (10.0-50.0); Monocytes % (manual) 4 (0-12)
[2024-05-08 11:10] LABS: Platelet Estimate Adequate
[2024-05-08 11:43] VITALS: BP 125/90; PULSE 92; RESP 16; TEMP 98.6; O2SAT 97
[2024-05-08 12:13] LABS: Urine Bacteria None Seen /hpf (None Seen)
[2024-05-08 12:36] LABS: Urine Blood Negative /uL (Negative); Urine Clarity Clear (Clear); Urine Color Yellow (Yellow); Urine Mucus FEW (None Seen); Urine Protein, UAD Negative (Negative); Urine Specific Gravity 1.022 (1.001-1.035); Urine Squamous Epithelial Cell None Seen /hpf (<5); Urine Urobilinogen Normal (Negative); Urine WBC 28 /hpf (0 - 3); Urine pH 5.5 (5.0-9.0)
[2024-05-08 12:40] LABS: Barbiturate Scree,Urine Neg (NEGATIVE); Benzodiazephine Screen, Urine Neg (NEGATIVE)
[2024-05-08 12:41] LABS: Amphetamine Screen, Urine Neg (NEGATIVE); Cannabinoid Screen, Urine Neg (NEGATIVE); Cocaine Screen, Urine Neg (NEGATIVE); Opiate Scree,Urine Neg (NEGATIVE); Phencyclidine Screen, Urine Neg (NEGATIVE)
== END 2024-05-08 13:39 | disposition left against medical advice (07) ==
LOC: ER 08:58
DX: E86.0 Dehydration (principal); F10.10 Alcohol abuse, uncomplicated; R10.13 Epigastric pain; I10 Essential (primary) hypertension
CPT/HCPCS: 36415; 71046; 80053; 80307; 81001; 83690; 83735; 85007; 85027; 93005; 96361; 96374; 96375; 99285; J2060; J2405; J7030

== ENCOUNTER 2024-05-20 14:28 | Emergency (ER) | payer MEDICAID ==
[~2024-05-20] VITALS: Ht 188 cm; Wt 107.4 kg
[2024-05-20 15:00] VITALS: BP 153/96; PULSE 130; RESP 18; O2SAT 92
--- NOTE | 2024-05-21 12:42 | ECG ---
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
== END 2024-05-20 16:20 | disposition left against medical advice (07) ==
LOC: ER 14:28
DX: F10.239 Alcohol dependence with withdrawal, unspecified (principal); I44.4 Left anterior fascicular block; Z53.21 Procedure and treatment not carried out due to patient leaving prior to being seen by health care provider
CPT/HCPCS: 93005